=== PATIENT | female | born 1940 | race Caucasian/White ===

== ENCOUNTER → 2017-01-19 | Outpatient (CLI) | payer MEDICARE ==
[2017-01-19 10:00] LABS: ALBUMIN 3.8 g/dL (3.4-5.0); DIRECT BILIRUBIN 0.2 mg/dL (0.0-0.2); TOTAL BILIRUBIN 0.5 mg/dL (0.2-1.0); TOTAL PROTEIN 7.8 g/dL (6.4-8.2)
== END | disposition home or self-care (01) ==
LOC: LAB 08:59
PROVIDERS: ATTEND Internal Medicine Interventional Cardiology
DX: E78.5 Hyperlipidemia, unspecified (principal)
CPT/HCPCS: 36415; 80061; 80076

== ENCOUNTER → 2017-07-28 | Outpatient (CLI) | payer MEDICARE ==
--- NOTE | 2017-07-29 15:43 | RAD ---
DATE: 07/28/2016 EXAM: DIGITAL SCREEN BILAT W/CAD Bilateral Screening Digital 2D and 3D Mammogram HISTORY: Screening Mammogram COMPARISON: Screening mammogram 07/25/2016, 07/03/2015, 06/13/2014 This study was interpreted with the benefit of Computerized Aided Detection (CAD). The breast parenchyma is primarily fatty replaced. Breast parenchyma level density A. FINDINGS: Bilateral digital 2-D and 3-D tomosynthesis CC and MLO views. Stable small benign-appearing bilateral circumscribed masses. No suspicious mass, calcification or architectural distortion. No significant change from prior examination IMPRESSION: No mammographic evidence of malignancy. Recommend routine screening mammogram in 12 months. BI-RADS CATEGORY: 2 BENIGN FINDING(S) RECOMMENDED FOLLOW-UP: 12M 12 MONTH FOLLOW-UP PQRS compliance statement: Patient information was entered into a reminder system with a target due date for the next mammogram. Mammography is a sensitive method for finding small breast cancers, but it does not detect them all and is not a substitute for careful clinical examination. A negative mammogram does not negate a clinically suspicious finding and should not result in delay in biopsying a clinically suspicious abnormality. "Our facility is accredited by the [employer] Mammography [employer]."
== END | disposition home or self-care (01) ==
LOC: MAMMO 09:56
PROVIDERS: ATTEND Specialist
DX: Z12.31 Encounter for screening mammogram for malignant neoplasm of breast (principal)
CPT/HCPCS: G0202; 77067

== ENCOUNTER → 2018-07-30 | Outpatient (CLI) | payer MEDICARE ==
--- NOTE | 2018-07-30 15:54 | RAD ---
DATE: 07/30/2018 1:00 PM EXAM: MAMMO SHERRELL SCREENING BILATERAL HISTORY: routine screening evaluation. COMPARISON: Prior mammographic imaging dating back to 06/13/2014 Bilateral CC and MLO views of the breasts were performed. Bilateral breast tomosynthesis was performed in CC and MLO projections. This study was interpreted with the benefit of Computerized Aided Detection (CAD ). Breast Density: The breast parenchyma is primarily fatty replaced. Breast parenchyma level density A. FINDINGS: Benign calcifications are present. There is a pacemaker device in the left axilla. No suspicious masses, microcalcifications or architectural distortion is present to suggest malignancy in either breast. The visualized axillae are unremarkable. IMPRESSION: No mammographic evidence of malignancy. BI-RADS CATEGORY: 2 BENIGN FINDING(S) RECOMMENDED FOLLOW-UP: 12M 12 MONTH FOLLOW-UP Annual screening mammography is recommended, unless clinically indicated sooner based on symptoms or change in physical exam. PQRS compliance statement: Patient information was entered into a reminder system with a target due date 07/31/2019 for the next mammogram. Mammography is a sensitive method for finding small breast cancers, but it does not detect them all and is not a substitute for careful clinical examination. A negative mammogram does not negate a clinically suspicious finding and should not result in delay in biopsying a clinically suspicious abnormality. "Our facility is accredited by the [employer] Mammography [employer]." VANNESSAD
== END | disposition home or self-care (01) ==
LOC: MAMMO 10:47
PROVIDERS: ATTEND Specialist
DX: Z12.31 Encounter for screening mammogram for malignant neoplasm of breast (principal)
CPT/HCPCS: 77063; 77067

== ENCOUNTER → 2019-08-05 | Outpatient (CLI) | payer MEDICARE ==
--- NOTE | 2019-08-05 14:52 | RAD ---
DATE: 08/05/2019. EXAM: MAMMO SHERRELL SCREENING BILATERAL. HISTORY: Routine mammographic screening. COMPARISON: 07/30/2018. This study was interpreted with the benefit of Computerized Aided Detection (CAD). FINDINGS: Breast Density: SCATTERED The breast parenchyma shows scattered fibroglandular densities. Breast parenchyma level B.. A nodule superolaterally on the right is new. See annotations. Multiple other nodules are stable and likely represent cysts. A pacemaker generator is partially visualized on the left. There is no suspicious finding on the left. BI-RADS CATEGORY: 0 INCOMPLETE: NEEDS ADDITIONAL IMAGING EVALUATION AND/OR PRIOR MAMMOGRAMS FOR COMPARISON.. RECOMMENDED FOLLOW-UP: ADD ADDITIONAL IMAGING. 1. Spot compression and sonography of a new nodule superolaterally on the right. See annotations. PQRS compliance statement: Patient information was entered into a reminder system with a target due date (now) for the next mammogram. Mammography is a sensitive method for finding small breast cancers, but it does not detect them all and is not a substitute for careful clinical examination. A negative mammogram does not negate a clinically suspicious finding and should not result in delay in biopsying a clinically suspicious abnormality. "Our facility is accredited by the [employer] Mammography [employer]."
== END | disposition home or self-care (01) ==
LOC: MAMMO 11:01
PROVIDERS: ATTEND Physician Assistant
DX: Z12.31 Encounter for screening mammogram for malignant neoplasm of breast (principal); N63.10 Unspecified lump in the right breast, unspecified quadrant; Z95.0 Presence of cardiac pacemaker
CPT/HCPCS: 77063; 77067

== ENCOUNTER → 2019-08-16 | Outpatient (CLI) | payer MEDICARE ==
--- NOTE | 2019-08-16 15:11 | RAD ---
DATE: August 16, 2019 EXAM: DIGITAL DIAGNOSTIC RT, BREAST RIGHT sonography HISTORY: Further evaluation of new nodule seen within the upper-outer quadrant of the right breast. COMPARISON: August 05, 2019 DIAGNOSTIC RIGHT-SIDED MAMMOGRAPHY: Focal digital compression views of the right breast were performed in the CC and MLO projections. Previously seen small nodule located 4.5 cm from the nipple within the upper-outer quadrant of the right breast is again evident. There are additional small nodules within the right breast similar to this nodule. However, this nodule was new from a previous mammogram. RIGHT BREAST SONOGRAPHY: High-resolution sonography of the lateral one half of the right breast was performed. At the 10:00 position 5 cm from the nipple, a small hypoechoic nodule is seen measuring 4 mm in greatest dimension. No internal color Doppler flow is seen within it. Thin echogenic capsule is evident. It is wider than it is tall. Less than 3 lobulations are apparent. Therefore, it is most likely a benign nodule. However, recommend 6 month follow-up. IMPRESSION: Probable benign nodule of the right breast. Recommend 6 month follow-up 2-D right sided mammogram and right breast sonogram in 6 months. BI-RADS CATEGORY: 3 PROBABLE BENIGN-SHORT TERM F/U RECOMMENDED FOLLOW-UP: 6M 6 MONTH FOLLOW-UP PQRS compliance statement: Patient information was entered into a reminder system with a target due date February 15, 2020 for the next imaging study. Mammography is a sensitive method for finding small breast cancers, but it does not detect them all and is not a substitute for careful clinical examination. A negative mammogram does not negate a clinically suspicious finding and should not result in delay in biopsying a clinically suspicious abnormality. "Our facility is accredited by the [employer] Mammography Program."
== END | disposition home or self-care (01) ==
LOC: MAMMO 13:25
PROVIDERS: ATTEND Physician Assistant
DX: N63.11 Unspecified lump in the right breast, upper outer quadrant (principal); R92.2 Inconclusive mammogram
CPT/HCPCS: 76641; 77065

== ENCOUNTER → 2020-02-01 | Outpatient (CLI) | payer MEDICARE ==
--- NOTE | 2020-02-01 13:53 | RAD ---
INDICATION: Osteoporosis screening. post menopausal follow-up COMPARISON: July 25, 2016 TECHNIQUE: Bone densitometry was performed through the lumbar spine and proximal femur. FINDINGS: Lumbar Spine: BMD: 1.05 T-Score: -1.1 Decreased by 2 percent from prior Proximal Femur: BMD: 0.939 T-Score: -0.1 Increased by 5 percent from prior IMPRESSION: 1. Lumbar spine falls within the osteopenic range. 2. Proximal femur falls within the normal range. Electronically signed by: Morgan Sampson MD (02/01/2020 1:50 PM) [id number]
--- NOTE | 2020-02-01 15:49 | RAD ---
EXAMINATION: DIGITAL DIAGNOSTIC RT, BREAST RIGHT, 02/01/2020 1:00 PM CLINICAL INDICATION: 79-year-old woman presenting for six-month follow-up for probably benign right breast mass. COMPARISON: Diagnostic right breast mammogram and ultrasound 08/16/2019 MAMMOGRAPHIC FINDINGS: CC and MLO views of the right breast were obtained. The right breast contains scattered areas of fibroglandular density. The small circumscribed mass at 10:00 middle depth in the right breast is unchanged. No new mass or suspicious calcifications. SONOGRAPHIC FINDINGS: Targeted ultrasound of the right breast was performed at 10:00. The ovoid, circumscribed nearly anechoic mass with a few internal echoes at 10:00 5 cm from nipple is unchanged. The mass measures 4 x 3 x 3 mm and is avascular with no shadowing. This is likely clustered microcysts. IMPRESSION: 1. Unchanged probably-benign mass at 10:00, 5 cm the nipple in the right breast, likely clustered microcysts. 2. BI-RADS 3-probably benign. 3. Recommend 6 month follow-up ultrasound to ensure stability. The patient will receive a reminder letter by mail when she is due for her next exam. Electronically signed by: Sera Su MD (02/01/2020 3:46 PM) [id number]
== END ==
LOC: MAMMO 12:24
PROVIDERS: ATTEND Physician Assistant
DX: M85.88 Other specified disorders of bone density and structure, other site (principal); R92.2 Inconclusive mammogram; N95.1 Menopausal and female climacteric states
CPT/HCPCS: 76641; 77065; 77080

== ENCOUNTER → 2020-11-07 | Outpatient (CLI) | payer MEDICARE ==
[2020-11-07 10:51] LABS: BASO % 0 % (0-3); EOS # 0.1 x10^3/uL (0.0-0.7); EOS % 2 % (0-3); HEMATOCRIT 45.6 % (36.0-47.0); HEMOGLOBIN 14.9 g/dL (12.0-15.5); LYMPH # 1.3 x10^3/uL (1.0-4.8); LYMPH % 19 % (24-48); MEAN CORPUSCULAR HEMOGLOBIN 28 pg (25-35); MEAN CORPUSCULAR HGB CONC 33 g/dL (31-37); MEAN CORPUSCULAR VOLUME 86 fL (79-100); MONO # 0.5 x10^3/uL (0.0-1.1); MONO % 7 % (0-9); NEUT # 5.1 x10^3uL (1.8-7.7); NEUT % 73 % (31-73); PLATELET COUNT 307 x10^3/uL (140-400); RED BLOOD COUNT 5.29 x10^6/uL (3.50-5.40); RED CELL DISTRIBUTION WIDTH 13.6 % (11.5-14.5)
[2020-11-07 11:00] LABS: ALBUMIN 3.8 g/dL (3.4-5.0); CREATININE 0.8 mg/dL (0.6-1.0); GFR 69.2; POTASSIUM 3.9 mmol/L (3.5-5.1); TOTAL BILIRUBIN 0.7 mg/dL (0.2-1.0); TOTAL PROTEIN 7.8 g/dL (6.4-8.2)
== END ==
LOC: LAB 10:04
PROVIDERS: ATTEND Internal Medicine Interventional Cardiology
DX: I10 Essential (primary) hypertension (principal); E78.5 Hyperlipidemia, unspecified
CPT/HCPCS: 36415; 80053; 80061; 85025

== ENCOUNTER → 2020-11-07 | Outpatient (CLI) | payer MEDICARE ==
--- NOTE | 2020-11-09 08:41 | RAD ---
Examination: Limited right breast ultrasound. INDICATION: 80-year-old woman presents for six-month follow-up probably benign cysts in the right melissa ast. COMPARISON: Right breast ultrasound of 02/01/2020, right diagnostic mammograms of 02/01/2020 and 019. Bilateral screening mammogram of 08/05/2019. Limited right breast ultrasound of 08/16/2019. TECHNIQUE: Targeted ultrasound of the right breast focused at the 10:00 position 5 cm from the nipple in the area of previous sonographic interest was performed FINDINGS: At the right 10:00 position 5 cm from the nipple, a pair of circumscribed oval parallel orientation a nechoic masses compatible with benign cysts are seen. The larger measures 5.5 mm, the smaller measure s 3 mm. The smaller of the 2 is marginally larger compared with the prior ultrasound examinations but they both show benign morphology on ultrasound with no suspicious features. IMPRESSION: Benign sonographic findings compatible with cysts in the right breast at the 10:00 position 5 cm from the nipple. No evidence of malignancy. Recommend return to routine screening. She may be due. She wa s offered the opportunity to undergo screening at this visit but declined due to a scheduling conflic t. BI-RADS Category 2 Benign findings Recommend return to routine annual mammographic screening, which may be due. Technologist has discuss ed this with the patient on my behalf and at my request and patient plans consider pursuing screening at her convenience. I recommend she discuss her plans for future screening with her referring physic joe. Electronically signed by: Alpa Aburto MD (11/09/2020 8:38 AM) [id number]
== END ==
LOC: US 12:59
PROVIDERS: ATTEND Physician Assistant
DX: N60.01 Solitary cyst of right breast (principal)
CPT/HCPCS: 76641

== ENCOUNTER → 2021-02-25 | Outpatient (CLI) | payer MEDICARE ==
--- NOTE | 2021-02-25 16:02 | RAD ---
PROCEDURE: MG BILAT SCREEN+SHERRELL HISTORY: The patient is 80 years old and is seen for Reason: SCREENING / Spl. Instructions: / Histor y: . COMPARISON: August 05, 2019 and July 30, 2018 TECHNIQUE: CC and MLO views of both breasts were obtained. Images were processed by the [employer] computer-aided detection system. DENSITY: There are scattered fibroglandular densities. FINDINGS: Bilateral well-circumscribed masses, similar compared to prior. Benign-appearing calcific ations. IMPRESSION: Stable bilateral mammograms. Recommend annual screening mammograms per [employer] guidelines. She will be due in one year. BI-RADS category 2 Benign Patient entered into a reminder system for annual screening mammogram. Electronically signed by: Yves Christie DO (02/25/2021 4:00 PM) [id number]
== END ==
LOC: MAMMO 14:21
PROVIDERS: ATTEND Physician Assistant
DX: Z12.31 Encounter for screening mammogram for malignant neoplasm of breast (principal)
CPT/HCPCS: 77063; 77067